=== PATIENT | female | born 1940 | race Caucasian/White ===

== ENCOUNTER 2017-03-26 10:00 | Inpatient (IN) | payer MEDICARE, BC ==
[~2017-03-26] VITALS: Ht 170.2 cm; Wt 92.8 kg
--- NOTE | ~2017-03-26 | OR ---
PATIENT'S NAME: MONI WOODY [facility] AGE: 76 Y [address] ROOM: [place] [address] LOCATION: [facility] ADMIT DATE: 04/02/2017 OR/Procedure Report DISCHARGE DATE: FAMILY PHYSICIAN: Mindy Alvarado APRN ATTENDING PHYSICIAN: PAIGE DELACRUZ SURGEON: Paige Delacruz MD SEAT MAKER: ROXIE Villatoro and Joe Medina CST/CENTRIFUGAL SUPERVISOR. 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 OPERATION: Right total hip arthroplasty. ANESTHESIA: Spinal anesthesia plus subcutaneous and periarticular local anesthesia (ropivacaine with epinephrine). ESTIMATED BLOOD LOSS: Approximately 400 mL (the patient seemed mildly coagulopathic despite the fact that her Coumadin had been held and her INR had been adequately reversed). Blood loss was, therefore, more than usual. DRAIN: None. SPECIMEN: Synovial fluid for stat Gram stain and cell count. Synovial fluid for routine cultures. COMPLICATIONS: None. IMPLANTS: Latrell Trident Tritanium size 56 mm hemispherical uncemented acetabular shell with 1 dome hole cover and no screws. Latrell X3 neutral acetabular polyethylene liner with 36 mm inner diameter. DePuy [place] size 7, high offset, uncemented femoral component 36 mm diameter metallic femoral head with +5 mm neck length. INDICATION FOR SURGERY: Moni Woody is a 76-year-old female who presents with advanced right hip degenerative joint disease (potential avascular necrosis with secondary right hip degenerative joint disease) and associated severely compromised activities of daily living. The patient has decided to proceed with hip replacement after having been thoroughly counseled regarding the associated risks, benefits, and limitations. We have specifically reviewed the risks and implications of infection, deep venous thrombosis, PATIENT'S NAME: MONI WOODY [facility] AGE: 76 Y [address] ROOM: [place] [address] LOCATION: [facility] ADMIT DATE: 04/02/2017 OR/Procedure Report DISCHARGE DATE: FAMILY PHYSICIAN: Mindy Alvarado APRN ATTENDING PHYSICIAN: PAIGE DELACRUZ pulmonary embolism, mortality, neurovascular complications, blood transfusion (and associated potential for disease transmission or transfusion reaction), stiffness, instability, leg length discrepancy, mechanical deterioration of the components (due to wear and to loosening), and the potential need for revision. DESCRIPTION OF PROCEDURE: The patient was positioned in a lateral decubitus position with the right side up after administration of anesthesia and prophylactic antibiotics. An axillary roll was placed and the non-operative leg was well padded. The pelvis was locked perpendicularly to the floor on a pegboard. The right hip and entire operative extremity were prepped and draped with vigilant sterile technique. The patient's name as well as the intended operative side and procedure were confirmed with a verbal time-out involving myself, the circulating nurse, the scrub nurse, and the anesthesiologist. The right hip was approached through a standard posterolateral incision. The fascia armond and the gluteus yasmeen fascia were sharply divided in line with the overlying skin incision. The sciatic nerve was identified and was vigilantly protected throughout the entire case. The short external rotators and posterior capsule were divided from their respective femoral insertions and tagged with four #1 Ethibond sutures for later repair. The hip was posteriorly dislocated with combined flexion, adduction, and internal rotation. The femoral neck osteotomy was performed with an oscillating saw. Inspection of the femoral head demonstrated global full- thickness loss of articular cartilage. There was flattening of the femoral head consistent with potential avascular necrosis. Circumferential acetabular exposure was obtained. Examination of acetabulum demonstrated a very large effusion. The fluid was translucent, but this was sent for culture as well as cell count and stat Gram stain (neither of which suggested infection). There was no dysplasia. There was full-thickness loss of articular cartilage throughout the weightbearing surface. There was a moderate synovitis and extensive synovectomy was performed. Remnants of the acetabular labrum were sharply thoroughly excised. The acetabulum was sequentially progressively reamed up to 55 mm with hemispherical power reamers. The final acetabular shell was impacted into position in 20 degrees of anteversion and 45 degrees of inclination. An excellent press-fit was obtained. No supplemental dome screw fixation was necessary. A neutral trial liner was inserted. Attention was next focused upon femoral preparation. The femoral canal initiator was utilized. The femoral canal was reamed by hand to a size 5 and PATIENT'S NAME: MONI WOODY [facility] AGE: 76 Y [address] ROOM: [address] [address] LOCATION: [facility] ADMIT DATE: 04/02/2017 OR/Procedure Report DISCHARGE DATE: FAMILY PHYSICIAN: Mindy Alvarado APRN ATTENDING PHYSICIAN: PAIGE DELACRUZ subsequently on power to a size 7 with tapered conical reamers. The size 7 reamer tightly engaged the endosteal cortex of the proximal femur. Subsequently sequentially progressively broached up to a size 7. The size 7 broach obtained excellent axial and rotational stability. Trial reductions with the above specified construct yielded acceptable stability and acceptable reproduction of leg length and offset. All trial components were removed. The final acetabular liner was inserted with excellent circumferential visualization of its locking mechanism to assure adequate deployment. The final femoral component was impacted into position. The femoral component achieved excellent axial and rotational stability. The trunnion of the femoral component was vigilantly protected prior to placement of the femoral head. The trunnion of the femoral component was thoroughly cleaned and dried prior to placement of the femoral head. The incision was thoroughly irrigated with bacteriostatic pulsatile saline lavage multiple times throughout the case. The entire joint space was thoroughly inspected and thoroughly irrigated to assure that there was no residual debris of any sort. A final reduction was then performed. After final reduction, the hip could be firmly externally rotated in full extension and zero degrees of abduction without anterior subluxation. In neutral rotation and zero degrees of abduction, the hip could be firmly flexed to 120 degrees without instability. At 90 degrees of flexion and zero degrees abduction, the hip could be internally rotated to 65 degrees before there was any hint of posterior subluxation. The posterior capsule and short external rotators were repaired through two drill holes in the posterior aspect of the greater trochanter. The fascia armond and gluteus yasmeen fascia were closed with multiple simple and [id number] interrupted # 1 Ethibond and #1 Vicryl sutures. Subcutaneous tissues were thoroughly re-irrigated with bacteriostatic pulsatile saline lavage. Subcutaneous tissues were re-approximated with simple buried interrupted #0 Vicryl sutures. The skin was closed with superficial buried interrupted 2-0 Vicryl sutures followed by a running subcuticular 3-0 Monocryl suture, followed by Octylseal, followed by Steri- Strips with benzoin, followed by an occlusive Mepilex dressing. There were no intra-operative complications. It should be noted that the physician's assistant production manager played an active, integral role throughout this entire operation. By providing expert retraction, they greatly facilitated and expedited safe and effective exposure of the proximal femur and acetabulum for preparation and implantation of the components. They PATIENT'S NAME: MONI WOODY [facility] AGE: 76 Y [address] ROOM: [place] [address] LOCATION: [facility] ADMIT DATE: 04/02/2017 OR/Procedure Report DISCHARGE DATE: FAMILY PHYSICIAN: Mindy Alvarado APRN ATTENDING PHYSICIAN: PAIGE DELACRUZ were also actively involved in the patient's positioning, prepping and draping, as well as wound closure. MD PALMA YUNG/rebecca /[id number] d: 04/02/17 1047 t: 04/05/17 0752, OPERATIVE SUMMARY
[2017-03-27] MEDS ORDERED: FEOSOL325 MG PO (14:27)
[2017-03-27] MEDS ORDERED: VOLTAREN50 MG PO (14:28)
[2017-03-27] MEDS ORDERED: HYDREA500 MG PO ×2 (14:30→14:31)
[2017-03-27] MEDS ORDERED: CARDIZEM CD360 MG PO (14:31)
[2017-03-27] MEDS ORDERED: ELAVIL75 MG PO (14:32)
[2017-03-27] MEDS ORDERED: LEVOTHROID (S150 MCG PO (14:33)
[2017-03-27] MEDS ORDERED: COUMADIN ** IA5 MG PO (14:33)
[2017-03-27] MEDS ORDERED: MULTI VITAMIN1 EACH PO (14:34)
[2017-03-27] MEDS ORDERED: CALCIUM + VITA1 EACH PO (14:35)
[2017-03-27] MEDS ORDERED: ULTRAM50 MG PO (14:36)
[2017-03-27] MEDS ORDERED: ZOFRAN8 MG PO (14:37)
[2017-04-02 06:29] LABS: INR - (THERAPEUTIC) 1.06 (0.92-1.07); PROTIME 11.1 SECONDS (9.8-11.4)
--- NOTE | 2017-04-02 17:19 | NUR ---
Significant Event: pt alert and oriented. arrived on floor at 1045. post op vitals completed. pt up with 1 assist to the commode. voids well. norco given last at 1133. denies need at present time. ancef given at 1500. iv fluids cont. 02 at 2lpm/nc. ice to hip. pleasant and coopertive. in the room with pt. Follow up:
--- NOTE | 2017-04-03 04:24 | NUR ---
Shift Summary: Patient can ambulate with one assist/walker. Having minimal pain. Using one norco at a time for pain control. Tolerating regular diet well. Voiding without difficulty. Is on telemetery, no calls this shift.
[2017-04-03 05:43] LABS: INR - (THERAPEUTIC) 1.18 (0.92-1.07); PROTIME 12.4 SECONDS (9.8-11.4)
--- NOTE | 2017-04-03 12:00 | NUR ---
SPOKE TO PATIENT,HER SPOUSE AND DAUGHTER FROYLAN AT THE BEDSIDE. INTRODUCED CM AND OUR ROLE. PATIENT LIVES IN OWN HOME WITH SPOUSE. SHE HAS FRONT WHEELED WALKER AND ALL HER DME. PATIENT IS PLANNING ON RETURNING HOME WITH HELP FROM CHILDREN AND SPOUSE. PATIENT DOES NOT ANTICIPATE ANY DISCHARGE NEEDS AT THIS TIME. CM WILL FOLLOW NEEDED.
--- NOTE | 2017-04-03 15:43 | NUR ---
Significant Event: pt alert and oriented. up in the recliner this shift. likes to sleep in the recliner. takes tylenol for pain. last this am. refused this afternoon. dressing intact, ice to hip. in the room with pt. home tomorrow. cont with every 8 hour antibotic.
--- NOTE | 2017-04-04 05:19 | NUR ---
Significant Event: ON TELEMETRY WITH NO CALLS. 1 ASSIST. VOIDS WITHOUT DIFFICULTY. DRESSING IS CLEAN, DRY AND INTACT. CSM WNL. ON ROOM AIR. TYLENOL AT 2050. HAS DENIED PAIN. POSSIBLE DISMISSAL. Follow up:
[2017-04-04 05:24] LABS: INR - (THERAPEUTIC) 1.24 (0.92-1.07); PROTIME 13.1 SECONDS (9.8-11.4)
[2017-04-04] MEDS ORDERED: COLACE100 MG PO (12:46)
[2017-04-04] MEDS ORDERED: MIRALAX17 GM PO (12:48)
[2017-04-04] MEDS ORDERED: TYLENOL325 MG PO (12:49)
[2017-04-04] MEDS ORDERED: NORCO 5-325 TA1 EACH PO (12:50)
[2017-04-04] MEDS ORDERED: LOVENOX 4040 MG/0.4 SUB-Q (12:53)
--- NOTE | 2017-04-04 14:01 | NUR ---
pt given discharge instructions and voices understanding. also in the room with pt. medications and dressing review done with pt. lovonox teaching done with pt and her . demonstarted lovenox injection well. pt escorted to the front door by transport staff. at her side.
== END 2017-04-04 14:00 | disposition disaster alternative care site (69) | DRG 470 ==
LOC: EDSTATUS 10:00 → GPOC 10:00 → G3N 04-02 05:23
PROVIDERS: Nurse Practitioner Family; ADMIT Orthopaedic Surgery
PROC: 0SR902A Replacement of Right Hip Joint with Metal on Polyethylene Synthetic Substitute, Uncemented, Open Approach (ICD-10-PCS; principal; 2017-04-02)
DX: M16.11 Unilateral primary osteoarthritis, right hip (principal); I48.0 Paroxysmal atrial fibrillation; E66.9 Obesity, unspecified; Z79.01 Long term (current) use of anticoagulants; E03.9 Hypothyroidism, unspecified; Z87.891 Personal history of nicotine dependence; Z86.718 Personal history of other venous thrombosis and embolism; Z85.3 Personal history of malignant neoplasm of breast; Z96.642 Presence of left artificial hip joint; Z90.12 Acquired absence of left breast and nipple; I10 Essential (primary) hypertension; R79.1 Abnormal coagulation profile; Z68.32 Body mass index [BMI] 32.0-32.9, adult; Z85.830 Personal history of malignant neoplasm of bone
CPT/HCPCS: C1776; J0690; J1100; J1650; J1885; J2001; J2405; J2795; J7030; J7040; J7120